=== PATIENT | female | born 1940 | race Caucasian/White ===

== ENCOUNTER 2017-10-08 14:24 | Outpatient (CLI) | END 2017-10-08 14:25 | disposition home or self-care (01) | LOC: NONPT 14:24 | PROVIDERS: ATTEND Internal Medicine | DX: E66.01 Morbid (severe) obesity due to excess calories (principal) | CPT/HCPCS: 80053; 81001; 85027; 87086; 87186 ==

== ENCOUNTER 2018-05-20 14:25 | Outpatient (CLI) | END 2018-05-20 15:11 | disposition home or self-care (01) | LOC: AMBL 14:25 | PROVIDERS: ATTEND Emergency Medicine | DX: R53.1 Weakness (principal); Z74.1 Need for assistance with personal care ==